=== PATIENT | male | born 1975 | race Two or more races ===

== ENCOUNTER 2021-05-07 17:00 | Emergency (ER) | payer SELFPAY ==
[~2021-05-07] VITALS: Ht 165.1 cm; Wt 72.6 kg
[2021-05-07 17:28] VITALS: BP 129/90
[2021-05-07] MEDS ORDERED: TDAP [DIPH/PERTUSSIS/TET] 0.5 ML VIAL IM ONE ×2 (18:00→18:14)
[2021-05-07] MEDS ORDERED: ACETAMINOPHEN ES 500 MG TABLET PO ONE (18:00)
[2021-05-07] MEDS ORDERED: ACETAMINOPHEN ES 500 MG TABLET ONE (18:14)
== END 2021-05-07 18:22 | disposition home or self-care (01) ==
LOC: ER 17:00
DX: S61.411A Laceration without foreign body of right hand, initial encounter (principal); W26.0XXA Contact with knife, initial encounter; Y93.89 Activity, other specified; Y92.89 Other specified places as the place of occurrence of the external cause; Y99.8 Other external cause status
CPT/HCPCS: 12002; 90471; 90715; 99283; A6403

== ENCOUNTER 2021-05-16 16:55 | Emergency (ER) | payer SELFPAY ==
[~2021-05-16] VITALS: Ht 167.6 cm; Wt 68.0 kg
[2021-05-16 17:00] VITALS: BP 125/66
--- NOTE | 2021-05-16 17:15 | NUR ---
SUTURE REMOVAL DONE BY THOMAS BLACKMON. PT DISCHARGE IN STABLE CONDITION.
== END 2021-05-16 17:34 | disposition home or self-care (01) ==
LOC: ER 16:57
DX: S61.411D Laceration without foreign body of right hand, subsequent encounter (principal); W26.0XXD Contact with knife, subsequent encounter